=== PATIENT | female | born 1995 | race Caucasian/White ===

== ENCOUNTER 2016-07-16 08:28 | Emergency (ER) | payer BC ==
[2016-07-16 08:43] VITALS: BP 120/81
--- NOTE | 2016-07-16 09:45 | UC ---
Daksha Dunn SooYoung, scribed for Janee Guerrier DO on 07/16/16 at 0905 . Throat Pain/Nasal Oliverio HPI - HPI Summary HPI Summary: A 20 y/o F [place] [facility] [place]o sore throat onset two days ago. Associated: mild rhinorrhea, general body aches. Denies; fatigue, fever, ANDREW, CP, SOB, n/v, rashes. Described as sharp when she swallows. Pain makes it difficult to eat and drink. She states feeling healthy otherwise. - History of Current Complaint Chief Complaint: UCRespiratory Stated Complaint: SORE THROAT Time Seen by Provider: 07/16/16 08:35 Hx Obtained From: Patient Hx Last Menstrual Period: 06/12/16 Onset/Duration: Lasting Days, Still Present Severity: Moderate Pain Intensity: 7 Pain Scale Used: 0-10 Numeric Cough: None Associated Signs & Symptoms: Positive: Nasal Discharge - mild. Negative: Fever , Vomiting, Rash - Allergies/Home Medications Allergies/Adverse Reactions: Allergies Allergy/AdvReac Type Severity Reaction Status Date / Time Penicillins Allergy Rash Verified 08/18/15 20:05 Home Medications: Home Medications Ibuprofen [Advil] 07/16/16 [History] Multiple Vitamins W/ Minerals [Airborne] 07/16/16 [History] PMH/Surg Hx/FS Hx/Imm Hx Previously Healthy: Yes Endocrine History Of: Denies: Diabetes Cardiovascular History Of: Denies: Hypertension Respiratory History Of: Reports: Asthma - exercise induced as a child GI/ History Of: Denies: Ulcer - Surgical History Surgical History: Yes Surgery Procedure, Year, and Place: wisdom teeth - Family History Known Family History: Positive: Cardiac Disease, Other - cancer Negative: Hypertension, Diabetes - Social History Occupation: Student Lives: With Family Alcohol Use: Rare Substance Use Type: None Smoking Status (MU): Never Smoked Tobacco Review of Systems Constitutional: Negative Skin: Negative Eyes: Negative ENT: Sore Throat, Nasal Discharge - mild rhinorrhea Respiratory: Negative Cardiovascular: Negative Gastrointestinal: Negative Genitourinary: Negative Motor: Negative Neurovascular: Negative Musculoskeletal: Other: - pos: general body aches Neurological: Negative Psychological: Negative All Other Systems Reviewed And Are Negative: Yes Physical Exam Triage Information Reviewed: Yes Appearance: Well-Appearing, No Pain Distress, Well-Nourished Vital Signs: Initial Vital Signs Temp 98.7 F 07/16/16 08:36 Pulse 92 07/16/16 08:36 Resp 18 07/16/16 08:36 BP 120/81 07/16/16 08:36 Pulse Ox 98 07/16/16 08:36 Vital Signs Reviewed: Yes Eyes: Positive: Conjunctiva Clear. Negative: Discharge ENT: Positive: Hearing grossly normal, TMs normal, Tonsillar swelling, Tonsillar exudate. Negative: Trismus, Muffled/hoarse voice Neck: Positive: Other: - pos: tender lymphadenopathy Respiratory: Positive: Lungs clear, Normal breath sounds, No respiratory distress, No accessory muscle use Cardiovascular: Positive: RRR, No Murmur Musculoskeletal Exam: Normal Neurological: Positive: Alert, Muscle Tone Normal Psychological Exam: Normal Psychological: Positive: Age Appropriate Behavior Skin Exam: Normal, Other - pos: warm, dry, nml color Throat Pain/Nasal Course/Dx - Course Assessment/Plan: Strep test is negative. - Differential Dx/Diagnosis Differential Diagnosis/HQI/PQRI: Mononucleosis, Pharyngitis - strep, Sinusitis, Tonsillitis, URI Provider Diagnoses: sore throat Discharge - Discharge Plan Condition: Stable Disposition: HOME Patient Education Materials: Pharyngitis (ED) Referrals: No Primary Care Phys,NOPCP [Primary Care Provider] - [facility] [Outside] Additional Instructions: As we discussed: Gargle with salt water. DISCUSSED, TRY MAGIC MOUTHWASH TO CONTROL PAIN PRIOR TO EATING. The documentation as recorded by the Daksha fuller SooYoung accurately reflects the service I personally performed and the decisions made by , Janee Guerrier DO.
== END 2016-07-16 09:45 | disposition home or self-care (01) ==
LOC: UCEAST 08:28
DX: J02.9 Acute pharyngitis, unspecified (principal); J45.909 Unspecified asthma, uncomplicated; Z88.0 Allergy status to penicillin
CPT/HCPCS: 87651; 99212; G0463

== ENCOUNTER 2016-08-21 16:26 | Emergency (ER) | payer BC ==
[2016-08-21] MEDS ORDERED: SUMAtriptan SQ* 6 MG/0.5 ML VIAL SUBCUT ONE (19:19)
[2016-08-21 20:23] VITALS: BP 126/79
--- NOTE | 2016-08-22 00:22 | UC ---
marek Dunn Timothy, scribed for gNa Mcclellan MD on 08/21/16 at 1906 . Headache HPI - HPI Summary HPI Summary: Mariella Montero is a 20 yo female presenting to [facility] with sudden onset blurred vision for one hour at 1300 with "fluttery" vision in left field for 1 hour following that, and 7/10 bilateral ANDREW since then. Nurses note states right eye, but Pt has corrected to left eye. She states she was photophobic. She denies any other Sx including fever or any trauma. Pt has no prior hx of migraine, but her mother has hx migraine. She is on hormonal control. Her MHx includes tonsilitis, strep throat, asthma. She is currently having her menses. - History Of Current Complaint Stated Complaint: BLURRED VISION,HEADACHE Time Seen by Provider: 08/21/16 19:12 Hx Obtained From: Patient Hx Last Menstrual Period: 08/17/16 Onset/Duration: Sudden Onset, Lasting Hours, Still Present Onset Of Symptoms: Sudden Initially Headache Was: Initial Pain Scale(0-10)= - 7 Currently Pain Is: Current Pain Scale(0-10)= - 7 Pain Intensity: 7 Pain Scale Used: 0-10 Numeric Timing: Constant Character: Throbbing Location of Headache: Frontal Aggravating Factor: Bright Lights Allevating Factors: Nothing Associated Signs And Symptoms: Positive: Visual Changes - blurred vision followed by "fluttery" visual field. Negative: Fever - Risk Factors SAH Risk Factors: Negative Meningitis Risk Factors: Negative SDH Risk Factors: Negative Temporal Arteritis Risk Factors: Female - Allergies/Home Medications Allergies/Adverse Reactions: Allergies Allergy/AdvReac Type Severity Reaction Status Date / Time Penicillins Allergy Rash Verified 08/21/16 18:53 PMH/Surg Hx/FS Hx/Imm Hx Endocrine History Of: Denies: Diabetes, Thyroid Disease Cardiovascular History Of: Denies: Cardiac Disorders, Hypertension Respiratory History Of: Reports: Asthma - exercise induced as a child Denies: COPD GI/ History Of: Denies: Ulcer - Surgical History Surgical History: Yes Surgery Procedure, Year, and Place: wisdom teeth - Family History Known Family History: Positive: Cardiac Disease, Other - cancer, migraine Negative: Hypertension, Diabetes - Social History Occupation: Student Alcohol Use: Rare Substance Use Type: None Smoking Status (MU): Never Smoked Tobacco Review of Systems Constitutional: Negative Skin: Negative Eyes: Blurred Vision - now resolved, followed by fluttery area in right visual field, Photophobia ENT: Negative Respiratory: Negative Cardiovascular: Negative Gastrointestinal: Negative Genitourinary: Negative Motor: Negative Neurovascular: Negative Musculoskeletal: Negative Neurological: Headache Psychological: Negative All Other Systems Reviewed And Are Negative: Yes Physical Exam Triage Information Reviewed: Yes Appearance: Well-Appearing, Well-Nourished, Pain Distress Vital Signs: Initial Vital Signs Temp 98.1 F 08/21/16 18:49 Pulse 60 08/21/16 18:49 Resp 16 08/21/16 18:49 BP 128/80 08/21/16 18:49 Pulse Ox 100 08/21/16 18:49 Vital Signs Reviewed: Yes Eyes: Positive: Conjunctiva Clear, Other: - PERRL, EOMI. Disks are sharp and flat, no hemorrhage bilaterally.. Negative: Discharge ENT: Positive: Hearing grossly normal, Pharynx normal, TMs normal. Negative: Muffled/hoarse voice Neck: Positive: Supple, Nontender Respiratory: Positive: Lungs clear, Normal breath sounds, No respiratory distress Cardiovascular: Positive: RRR, No Murmur, Pulses Normal, Brisk Capillary Refill Musculoskeletal: Positive: Strength Intact, ROM Intact Neurological: Positive: Alert, Muscle Tone Normal, Other: - A&O x3 CN II-XII intact Motor function 5/5 Sensations intact. Gait WNL. Psychological Exam: Normal Psychological: Positive: Age Appropriate Behavior Skin Exam: Normal Skin: Negative: rashes Re-Evaluation - Re-Evaluation First Eval Re-Evaluation Time: 20:06 Change: Improved Comment: Pt states her ANDREW has improved to a 5/10. She is declining CT imaging, and would like to be discharged. Pt agrees to present to [facility] if her pain increases or with manifestation of new symptoms. Headache Course/Dx - Course Course Of Treatment: Mariella Montero is a 20 yo female rpesenting to [facility] with blurred vision followed by a "fluttery" area in her right visual field, followed by 7/10 ANDREW since 1300. Pt received Sumatriptan in urgent care with decrease in her Sx. After re-evaluation, Pt agrees to present to [facility] if her pain increases or with manifestation of new symptoms, but would like to be discharged home. After clinical examination, she will be discharged home with migraine with appropriate instructions. - Differential Dx/Diagnosis Differential Diagnosis/HQI/PQRI: TIA, Migraine, Sinus Headache, Tension Headache Provider Diagnoses: acute migraine headache Discharge - Discharge Plan Condition: Stable Disposition: HOME Patient Education Materials: Migraine Headache (ED), Acute Headache (ED) Referrals: [facility] [facility] [Outside] - 2 Days [facility] [Provider Group] - 2 Days Additional Instructions: You were given imitrex (sumatriptan) 6mg subcutaneously at 7:45pm with some relief of your symptoms. We discussed CT imaging and decided not to do imaging at this time. Please follow up with the primary care physician provided and Pauline regarding your visit to urgent care today. Return to urgent care or the emergency department with any new or recurring symptoms. The documentation as recorded by the marek fuller Timothy accurately reflects the service I personally performed and the decisions made by , Nga Mcclellan MD.
== END 2016-08-21 20:23 | disposition home or self-care (01) ==
LOC: UCEAST 16:26
DX: G43.909 Migraine, unspecified, not intractable, without status migrainosus (principal); J45.990 Exercise induced bronchospasm
CPT/HCPCS: 99212; G0463; J3030

== ENCOUNTER 2017-05-20 07:49 | Emergency (ER) | payer BC ==
[2017-05-20 10:38] VITALS: BP 122/76
--- NOTE | 2017-05-20 15:32 | UC ---
Bernabe Dunn Tiffany, scribed for Janee Guerrier DO on 05/20/17 at 0902 . General HPI - HPI Summary HPI Summary: The patient is a 21 year old F presenting to [facility] with a chief complaint of sore throat since yesterday. The patient rates the pain 7/10 in severity. Symptoms aggravated by nothing. Symptoms alleviated by nothing. Patient reports bilateral eye irritation, specifically crust on right eye and pain in left eye. She also reports diaphoresis, cough with production, and sinus congestion. The patient additionally reports constant sore throbbing on her right upper teeth. She had two cavities filled six days ago this area. Patient denies fever, chills , vomiting, nasal congestion, and ear ache. - History of Current Complaint Chief Complaint: UCGeneralIllness Stated Complaint: DENTAL COMPLAINT,SORE THROAT,EYE COMPLAINT Time Seen by Provider: 05/20/17 08:47 Hx Obtained From: Patient Hx Last Menstrual Period: 05/20/17 Onset/Duration: Lasting Days - Yesterday, Still Present Current Severity: Moderate Pain Intensity: 7 Aggravating: Nothing Alleviating: Nothing Associated Signs & Symptoms: Positive: Other - bilateral eye irritation, specifically crust on right eye and pain in left eye, diaphoresis, cough with production, and sinus congestion, constant sore throbbing on her right upper teeth; NEGATIVE: fever, chills, vomiting, nasal congestion, and ear ache. - Allergy/Home Medications Allergies/Adverse Reactions: Allergies Allergy/AdvReac Type Severity Reaction Status Date / Time Penicillins Allergy Rash Verified 05/20/17 08:10 PMH/Surg Hx/FS Hx/Imm Hx Previously Healthy: No - Pt states she gets strep 3x a year Other Endocrine History: NEGATIVE: Diabetes, thyroid disease Respiratory History: Asthma Other Respiratory History: NEGATIVE: COPD - Surgical History Surgical History: Yes Surgery Procedure, Year, and Place: wisdom teeth - Family History Known Family History: Positive: Cardiac Disease, Other - cancer, migraine Negative: Hypertension, Diabetes - Social History Alcohol Use: Rare Substance Use Type: None Smoking Status (MU): Never Smoked Tobacco Review of Systems Constitutional: Negative - Fever, chills, Other - Diaphoresis Eyes: Other - Bilateral eye irritation, specifically crust on right eye and pain in left eye ENT: Negative - Ear ache, nasal congestion, Dental Pain - constant sore throbbing on her right upper teeth, Sore Throat, Sinus Congestion Respiratory: Cough - With production Gastrointestinal: Negative - Vomiting All Other Systems Reviewed And Are Negative: Yes Physical Exam Triage Information Reviewed: Yes Vital Signs: Initial Vital Signs Temp 99 F 05/20/17 08:11 Pulse 84 05/20/17 08:11 Resp 16 05/20/17 08:11 BP 118/76 05/20/17 08:11 Pulse Ox 97 05/20/17 08:11 Vital Signs Reviewed: Yes - Additional Comments Appearance: Well-Appearing, No Pain Distress, Well-Nourished Eyes: Conjunctiva mildly inflamed, Scant discharge from bilateral eyes ENT: Hearing grossly normal, no muffled/hoarse voice. TMs normal, tonsillar swelling, tonsillar exudate, negative trismus. Dental: Tender to percussion over teeth #2 and #3 Neck: Normal, Supple Respiratory/Lung Sounds: Lungs clear, Normal breath sounds, No respiratory distress, No accessory muscle use Cardiovascular: RRR, No murmur Musculoskeletal: Normal Neurological: Alert, muscle tone normal Psychiatric: Normal, age appropriate behavior Skin: Normal, Warm, Dry, Normal color Course/Dx - Course Course Of Treatment: Rapid strep test came back negative. Patient will be discharged with prescription for Magic Mouthwas, Polytrim and Deltasone. The patient is agreeable with this plan. Allergies reviewed. High blood pressure noted. - Differential Dx - Multi-Symptom Provider Diagnoses: Pharyngitis, toothache, conjunctivitis, elevated blood pressure without diagnosis of hypertension Discharge - Discharge Plan Condition: Stable Disposition: HOME Prescriptions: Magic Mouth Was-DAVID/MAAL/LIDO* 5 ml SWISH SPIT QID PRN #100 ml PRN Reason: Pain Polymyx/Trimethoprim OPTH* [Polytrim OPHTH*] 1 drop BOTH EYES Q3H #1 btl predniSONE TAB* [Deltasone TAB*] 40 mg PO DAILY #10 tab Patient Education Materials: Pharyngitis (ED), Toothache (ED), Conjunctivitis ( ED) Referrals: No Primary Care Phys,NOPCP [Primary Care Provider] - Additional Instructions: FOR TOOTHACHE: PLEASE CALL YOUR DENTIST AND SEE IF THEY AGREE WITH TREATING YOU FOR A DENTAL INFECTION AT THIS TIME. ANTIBIOTIC THERAPY: You have been given an antibiotic prescription. It's important that you take all the medication, unless instructed otherwise by your physician. Failure to complete the entire course can result in relapse of your condition. Common side effects of antibiotics include nausea, intestinal cramping, or diarrhea. Women may develop vaginal yeast infections, and babies can get yeast (thrush) in the mouth following the use of antibiotics. Contact your physician if you develop significant side effects from this medication. Allergy to this antibiotic can result in hives, wheezing, faintness, or itching. If symptoms of allergy occur, stop the medication and call the doctor. ANYTIME YOU TAKE AN ANTIBIOTIC, IT IS IMPORTANT TO REPLENISH THE BODY'S SUPPLY OF "GOOD BACTERIA." YOU CAN GET GOOD BACTERIA FROM HIGH QUALITY CULTURED FOODS SUCH LOCAL YOGURT, SOUR KRAUT, MATTY TIFFANIE, NATURALLY FERMENTED PICKLES AND PROBIOTIC DRINKS. YOU CAN ALSO GET GOOD BACTERIA FROM A PROBIOTIC SUPPLEMENT. FOR YOUR SORE THROAT: DISCUSSED, TRY MAGIC MOUTHWASH TO CONTROL PAIN PRIOR TO EATING. CORTICOSTEROID MEDICATION: You have been given a medicine of the cortisone class. This medication is used to control inflammation or allergy. It is usually only given for a short period of time, until the acute process subsides. There are usually no side effects from short-term use of cortisone-like medications. Some persons feel an increased sense of well-being and are not sleepy at bedtime. Long-term use of cortisone medications is best avoided, unless required for a severe condition. If your condition does not remit, or relapses after the course of corticosteroid medication, you should consult your physician. Contact the physician if you develop lightheadedness, black or tarry stools , swelling of the legs, or significant rapid change in weight. FOR YOUR EYE INFECTION: USE EYE DROPS DIRECTED The documentation as recorded by the Bernabe fuller Tiffany accurately reflects the service I personally performed and the decisions made by , Janee Guerrier DO.
== END 2017-05-20 10:32 | disposition home or self-care (01) ==
LOC: UCEAST 07:49
DX: J02.9 Acute pharyngitis, unspecified (principal); K08.89 Other specified disorders of teeth and supporting structures; R03.0 Elevated blood-pressure reading, without diagnosis of hypertension; H10.9 Unspecified conjunctivitis
CPT/HCPCS: 87651; 99212; G0463

== ENCOUNTER 2017-05-23 12:37 | Emergency (ER) | payer BC ==
[2017-05-23 13:46] VITALS: BP 119/69
[2017-05-23] MEDS ORDERED: Albuterol 2.5 MG/3 ML NEB.SOL* (0.083%) INH ONE (14:17)
--- NOTE | 2017-05-23 14:48 | UC ---
Respiratory Complaint HPI - HPI Summary HPI Summary: Patient presents with an unremarkable past medical history. She presents with complaints of five day onset sore throat, chest congestion and coughing. She states she is one day 5 of clindymycin and comes back in because she still has a sore throat and coughing. She complains of a burning sensation in her chest with coughingShe states she was put on the clindy for toothache, and has been taking it, and the toothache has improved. S. She denies any fever, chills, chest or abdominal pain nausea, vomiting, or diarrhea. - History of Current Complaint Chief Complaint: UCRespiratory Stated Complaint: SORE THROAT,CONGESTED Time Seen by Provider: 05/23/17 14:09 Hx Obtained From: Patient Hx Last Menstrual Period: now Onset/Duration: Gradual Onset, Lasting Days Timing: Constant Severity Initially: Moderate Severity Currently: Moderate Pain Intensity: 5 Character: Cough: Nonproductive Aggravating Factors: Nothing Alleviating Factors: Nothing Associated Signs And Symptoms: Positive: URI - Risk Factors Pulmonary Embolism Risk Factors: Negative Cardiac Risk Factors: Negative Pseudomonas Risk Factors: Negative Tuberculosis Risk Factors: Negative - Allergies/Home Medications Allergies/Adverse Reactions: Allergies Allergy/AdvReac Type Severity Reaction Status Date / Time MS Penicillins [Penicillins] Allergy Rash Verified 05/20/17 08:10 PMH/Surg Hx/FS Hx/Imm Hx Previously Healthy: Yes - Surgical History Surgical History: Yes Surgery Procedure, Year, and Place: wisdom teeth - Family History Known Family History: Positive: Cardiac Disease, Other - cancer, migraine Negative: Hypertension, Diabetes Family History: NON CONTRIBUTORY - Social History Occupation: Student Lives: Alone Alcohol Use: Occasionally Substance Use Type: None Smoking Status (MU): Never Smoked Tobacco Review of Systems Constitutional: Negative Skin: Negative Eyes: Negative ENT: Sore Throat Respiratory: Cough Cardiovascular: Negative Gastrointestinal: Negative Genitourinary: Negative Motor: Negative Neurovascular: Negative Musculoskeletal: Negative Neurological: Negative Psychological: Negative Is Patient Immunocompromised?: No All Other Systems Reviewed And Are Negative: Yes Physical Exam Triage Information Reviewed: Yes Appearance: Well-Appearing Vital Signs: Initial Vital Signs Temp 98.4 F 05/23/17 13:42 Pulse 85 05/23/17 13:42 Resp 16 05/23/17 13:42 BP 119/69 05/23/17 13:42 Pulse Ox 99 05/23/17 13:42 Vital Signs Reviewed: Yes Eye Exam: Normal ENT: Positive: Pharyngeal erythema Neck exam: Normal Neck: Positive: 1 Respiratory Exam: Normal Cardiovascular Exam: Normal Abdominal Exam: Normal Musculoskeletal Exam: Normal Neurological Exam: Normal Psychological Exam: Normal Skin Exam: Normal UC Diagnostic Evaluation - Laboratory O2 Sat by Pulse Oximetry: 99 Respiratory Course/Dx - Course Course Of Treatment: Patient presents with continued complaints of sore throat and buring in her chest with coughing. A chest xray was obtained and was read as negative, and discussed with the patient. A mono spot was drawn and the test results ae pending. A throat culture was also obtained and results are pending. She recieved an albuterol treatment in the department with no noted improvement in her symptoms. Her VSS and she was afebrile. She was discharge with no change in her medical management at this time as her symtpoms may be viral. I did recommend that she rest, increase fluids and follow up with her PCP if her symtpoms persist. She did verbalized understanding of and was in agreement with the discharge plan. - Differential Dx/Diagnosis Differential Diagnosis/HQI/PQRI: Other - pharyngitis Provider Diagnoses: pharyngitis Discharge - Discharge Plan Condition: Stable Disposition: HOME Patient Education Materials: Pharyngitis (ED) Referrals: No Primary Care Phys,NOPCP [Primary Care Provider] - Additional Instructions: Continue current medical management.
--- NOTE | 2017-05-23 14:48 | RAD ---
INDICATION: Cough. COMPARISON: There are no prior studies available for comparison. TECHNIQUE: Dual-energy PA and lateral views of the chest were obtained. FINDINGS: The heart is within normal limits in size. Mediastinal and hilar contours appear within normal limits. The lungs are clear. No pleural effusion is present. IMPRESSION: NO EVIDENCE FOR ACTIVE CARDIOPULMONARY DISEASE.
--- NOTE | 2017-05-24 07:31 | ED ---
Progress - Progress Note Progress Note: Monospot is negative. Course/Dx - Course Course Of Treatment: Patient presents with continued complaints of sore throat and buring in her chest with coughing. A chest xray was obtained and was read as negative, and discussed with the patient. A mono spot was drawn and the test results ae pending. A throat culture was also obtained and results are pending. She recieved an albuterol treatment in the department with no noted improvement in her symptoms. Her VSS and she was afebrile. She was discharge with no change in her medical management at this time as her symtpoms may be viral. I did recommend that she rest, increase fluids and follow up with her PCP if her symtpoms persist. She did verbalized understanding of and was in agreement with the discharge plan.
== END 2017-05-23 15:30 | disposition home or self-care (01) ==
LOC: UCEAST 12:37
DX: J02.9 Acute pharyngitis, unspecified (principal)
CPT/HCPCS: 36415; 71046; 86308; 86664; 86665; 87070; 99212; G0463

== ENCOUNTER 2017-12-18 16:38 | Emergency (ER) | payer BC ==
[2017-12-18 16:45] VITALS: BP 110/60
--- NOTE | 2017-12-18 16:48 | UC ---
Complaint Female HPI - HPI Summary HPI Summary: 22 yo female presents with urinary burning and frequency since yesterday. She tells me that she has never had a UTI, but hears this is what they feel likes. No hx of kidney stone. Denies fever, chills, abdominal pain, n/v/d/c, hematuria , flank pain, or vaginal discharge. - History Of Current Complaint Chief Complaint: UCGU Stated Complaint: URGENT URINATION Time Seen by Provider: 12/18/17 16:48 Hx Obtained From: Patient Hx Last Menstrual Period: 12/10/17 Onset/Duration: Sudden Onset Severity Initially: Mild Severity Currently: Moderate Pain Intensity: 7 Pain Scale Used: 0-10 Numeric - Allergies/Home Medications Allergies/Adverse Reactions: Allergies Allergy/AdvReac Type Severity Reaction Status Date / Time Penicillins Allergy Rash Verified 12/18/17 16:45 Home Medications: Home Medications Norgestimate-Ethinyl Estradiol [Trinessa Tablet] 1 each PO 12/18/17 [History] PMH/Surg Hx/FS Hx/Imm Hx - Additional Past Medical History Additional PMH: None - Surgical History Surgical History: Yes Surgery Procedure, Year, and Place: wisdom teeth - Family History Known Family History: Positive: Cardiac Disease, Other - cancer, migraine Negative: Hypertension, Diabetes - Social History Occupation: Student Lives: Dormitory/Roommates Alcohol Use: Occasionally Substance Use Type: None Smoking Status (MU): Never Smoked Tobacco Review of Systems Constitutional: Negative Skin: Negative Respiratory: Negative Cardiovascular: Negative Gastrointestinal: Negative Genitourinary: Dysuria, Frequency, Urgency Neurovascular: Negative Neurological: Negative Psychological: Negative All Other Systems Reviewed And Are Negative: Yes Physical Exam - Summary Physical Exam Summary: GENERAL: NAD. WDWN. No pain distress. SKIN: No rashes, sores, lesions, or open wounds. NECK: Supple. Nontender. No lymphadenopathy. CHEST: CTAB. No r/r/w. No accessory muscle use. Breathing comfortably and in no distress. CV: RRR. Without m/r/g. Pulses intact. Cap refill <2seconds ABDOMEN: Soft. NTTP. No distention or guarding. No CVA tenderness. Bowel sounds present NEURO: Alert. CN II-XII grossly intact. PSYCH: Age appropriate behavior. Triage Information Reviewed: Yes Vital Signs: Initial Vital Signs Temp 98.5 F 12/18/17 16:42 Pulse 87 12/18/17 16:42 Resp 18 12/18/17 16:42 BP 110/60 12/18/17 16:42 Pulse Ox 97 12/18/17 16:42 Laboratory Tests 12/18/17 17:01 POC Urine Color Yellow POC Urine Clarity Cloudy POC Urine pH 7.0 POC Ur Specif [place] 1.020 POC Urine Protein 2+ A POC Ur Glucose (UA) Negative POC Urine Ketones Negative POC Urine Blood 3+ A POC Urine Nitrite Negative POC Urine Bilirubin Negative POC Urine Urobilinogen 1.0 POC U Leukocyte Esteras 2+ A Vital Signs Reviewed: Yes Complaint Female Dx - Course Course Of Treatment: UA with signs of infection. Will treat with Macrobid and send urine for culture. - Differential Dx/Diagnosis Provider Diagnoses: UTI Discharge - Sign-Out/Discharge Documenting (check all that apply): Patient Departure All imaging exams completed and their final reports reviewed: No Studies - Discharge Plan Condition: Stable Disposition: HOME Prescriptions: Nitrofurantoin Monohyd/M-Cryst [Macrobid 100 mg Capsule] 100 mg PO BID #10 cap Patient Education Materials: Urinary Tract Infection in Women (DC) Referrals: No Primary Care Phys,NOPCP [Primary Care Provider] - Additional Instructions: If you develop a fever, shortness of breath, chest pain, new or worsening symptoms - please call your PCP or go to the ED. - Billing Disposition and Condition Condition: STABLE Disposition: Home - Attestation Statements Provider Attestation: Per institutional requirements, I have reviewed the chart, however, I was not consulted specifically or made aware of this patient by the midlevel provider. I did not personally evaluate, interact with , or disposition this patient.
== END 2017-12-18 17:30 | disposition home or self-care (01) ==
LOC: UCEAST 16:38
DX: N39.0 Urinary tract infection, site not specified (principal); Z88.0 Allergy status to penicillin
CPT/HCPCS: 81003; 87077; 87086; 87186; 99212; G0463

== ENCOUNTER 2018-01-08 17:02 | Emergency (ER) | payer BC ==
[2018-01-08 17:33] VITALS: BP 103/55
--- NOTE | 2018-01-08 17:51 | UC ---
Complaint Female HPI - HPI Summary HPI Summary: burning with urination x 1 day + frequency , urgency, no fever, no chills, no flank pain - History Of Current Complaint Chief Complaint: UCGU Stated Complaint: UTI Time Seen by Provider: 01/08/18 17:48 Hx Obtained From: Patient Hx Last Menstrual Period: 01/07/18 ?: No Onset/Duration: Gradual Onset, Lasting Days - 1, Still Present Timing: Constant Severity Initially: Moderate Severity Currently: Moderate Pain Intensity: 3 Character: Burning Aggravating Factor(s): Urination Alleviating Factor(s): Nothing Associated Signs And Symptoms: Negative: Fever, Back Pain, Vaginal Bleeding/ Discharge, Vaginal Discharge, Nausea, Vomiting(# Of Episodes =), Genital Swelling, Genital Blisters, Retained Foregin Body (Specify) - Allergies/Home Medications Allergies/Adverse Reactions: Allergies Allergy/AdvReac Type Severity Reaction Status Date / Time Penicillins Allergy Rash Verified 01/08/18 17:33 PMH/Surg Hx/FS Hx/Imm Hx Respiratory History: Asthma - Surgical History Surgical History: Yes Surgery Procedure, Year, and Place: wisdom teeth - Family History Known Family History: Positive: Cardiac Disease, Other - cancer, migraine Negative: Hypertension, Diabetes Family History: NON CONTRIBUTORY - Social History Alcohol Use: Occasionally Substance Use Type: None Smoking Status (MU): Never Smoked Tobacco Review of Systems Constitutional: Negative Skin: Negative Eyes: Negative ENT: Negative Respiratory: Negative Gastrointestinal: Negative Genitourinary: Dysuria, Frequency, Urgency Is Patient Immunocompromised?: No All Other Systems Reviewed And Are Negative: Yes Physical Exam Triage Information Reviewed: Yes Appearance: Well-Appearing, No Pain Distress, Well-Nourished Vital Signs: Initial Vital Signs Temp 98.2 F 01/08/18 17:30 Pulse 119 01/08/18 17:30 Resp 18 01/08/18 17:30 BP 103/55 01/08/18 17:30 Pulse Ox 98 01/08/18 17:30 Vital Signs Reviewed: Yes Eye Exam: Normal Eyes: Positive: Conjunctiva Clear ENT: Positive: Normal ENT inspection, Hearing grossly normal, Pharynx normal Neck: Positive: Supple, Nontender, No Lymphadenopathy Respiratory: Positive: Chest non-tender, Lungs clear, Normal breath sounds Cardiovascular: Positive: RRR, No Murmur, Pulses Normal Abdomen Description: Positive: Nontender, Soft. Negative: CVA Tenderness (R), CVA Tenderness (L), Distended, Guarding Bowel Sounds: Positive: Present Skin Exam: Normal Complaint Female Dx - Differential Dx/Diagnosis Provider Diagnoses: UTI Discharge - Sign-Out/Discharge Documenting (check all that apply): Patient Departure All imaging exams completed and their final reports reviewed: No Studies - Discharge Plan Condition: Stable Disposition: HOME Prescriptions: Sulfamethox/Trimethoprim DS* [Bactrim DS 800/160 TAB*] 1 tab PO BID #14 tab Patient Education Materials: Urinary Tract Infection in Women (DC) Referrals: No Primary Care Phys,NOPCP [Primary Care Provider] - 7 Days - Billing Disposition and Condition Condition: STABLE Disposition: Home
== END 2018-01-08 17:57 | disposition home or self-care (01) ==
LOC: UCEAST 17:02
DX: N39.0 Urinary tract infection, site not specified (principal); Z88.0 Allergy status to penicillin
CPT/HCPCS: 81003; 84702; 87077; 87086; 87186; 99212; G0463

== ENCOUNTER 2018-01-21 11:31 | Emergency (ER) | payer BC ==
[2018-01-21 12:21] VITALS: BP 100/51
--- NOTE | 2018-01-21 13:54 | UC ---
Nausea/Vomiting/Diarrhea HPI - HPI Summary HPI Summary: 22 y/o female presents to the urgent care c/o pt states she has had an upset stomach and diarrhea for the past 4 days. pt states she has also been nauseated but has no vomited. pt continues with stomach cramps to bilat lower quads. pt states she has been on bactrim and another abx that she does not remember the name for 2 visits here for uti's. - History of Current Complaint Chief Complaint: UCGI Stated Complaint: DIARRHEA Time Seen by Provider: 01/21/18 13:52 Hx Obtained From: Patient Hx Last Menstrual Period: 01/07/18 ?: No Onset/Duration: Gradual Onset, Lasting Days - 4 days, Still Present Timing: Intermittent Episodes Lasting: - few seconds of diarrhea Severity Initially: Mild Severity Currently: Mild Pain Intensity: 4 - abdominal cramping pain Pain Scale Used: 0-10 Numeric Location: Diffuse - crampoing abdominal which is relief by diarrhea, Epigastric Character: Cramping Aggravating Factor(s): Food Alleviating Factor(s): Bowel Movement, NPO Nausea/Vomiting Presence: Nauseated Diarrhea Presence: Yes Diarrhea Frequency: Daily - 4 episodes for day Diarrhea Duration: 2-3 days Diarrhea Characteristics: Watery - Risk Factors Influenza Risk Factors: Negative Surgical Obstruction Risk Factor(s): Negative - Allergies/Home Medications Allergies/Adverse Reactions: Allergies Allergy/AdvReac Type Severity Reaction Status Date / Time Penicillins Allergy Rash Verified 01/21/18 12:21 PMH/Surg Hx/FS Hx/Imm Hx Previously Healthy: Yes Respiratory History: Asthma - Surgical History Surgical History: Yes Surgery Procedure, Year, and Place: wisdom teeth - Family History Known Family History: Positive: Cardiac Disease Negative: Hypertension, Diabetes Family History: cancer, migraine - Social History Occupation: Student Lives: With Family Alcohol Use: Occasionally Substance Use Type: None Smoking Status (MU): Never Smoked Tobacco - Immunization History Vaccination Up to Date: Yes Review of Systems Constitutional: Negative Skin: Negative Eyes: Negative ENT: Negative Respiratory: Negative Cardiovascular: Negative Gastrointestinal: Abdominal Pain - epigastric, Diarrhea - 4 episodes every day, Nausea Genitourinary: Negative Motor: Negative Neurovascular: Negative Musculoskeletal: Negative Neurological: Negative Psychological: Negative Is Patient Immunocompromised?: No All Other Systems Reviewed And Are Negative: Yes Physical Exam - Summary Physical Exam Summary: Vital Signs Reviewed: Yes General:Patient is a well developed and nourished female who is sitting comfortable in the examining table. Patient is not in any acute respiratory distress. Eyes: Positive: Conjunctiva Clear - PERRLA, EOMI, fundi grossly normal ENT: Positive: Normal ENT inspection, Hearing grossly normal, Pharynx normal, TMs normal Neck: Positive: Supple, Nontender, No Lymphadenopathy Respiratory: Positive: Chest non-tender, Lungs clear, Normal breath sounds, No respiratory distress Cardiovascular: Positive: RRR,S1 and S2 present, No Murmur, Pulses Normal, Brisk Capillary Refill Abdomen Description: Positive: Abd: Flat with no distention. No surface trauma , scars, incisions. hyperactive bowel sounds present in all four quadrants. No tenderness, guarding, rigidity to palpation. No masses palpated, no pulsation in epigastric area mild tenderness on deep palpation. No organomegaly. Negative Thrall signs. No periumbilical tenderness. No rebound in the lower quadrants. NT over McBurneys point. Good femoral pulses bilaterally. No hernia noted. No CVAT bilaterally Musculoskeletal: Positive: Strength Intact, ROM Intact, No Edema,FROM in all major joints, no edema, no cyanosis or clubbing. Neuro: Alert and oriented x 3. No acute neurological deficits. Speech is normal. Psychological: WNL Skin: Dry and warm Triage Information Reviewed: Yes Vital Signs: Initial Vital Signs Temp 98.2 F 01/21/18 12:17 Pulse 84 01/21/18 12:17 Resp 18 01/21/18 12:17 BP 100/51 01/21/18 12:17 Pulse Ox 99 01/21/18 12:17 Naus/Vom/Diarrhea Course/Dx - Differential Dx/Diagnosis Differential Diagnoses - Female: Appendicitis, , Ovarian Cyst, Urinary Tract Infection, Gastroenteritis (Viral), Gastroenteritis (Bacterial), Vomiting , Diarrhea, Colitis, Ovarian Cyst, Peptic Ulcer Disease, Gastritis Provider Diagnoses: 1- Acute diarrhea. 2- Nausea Condition At Discharge: Stable Discharge - Sign-Out/Discharge Documenting (check all that apply): Patient Departure - D/C home All imaging exams completed and their final reports reviewed: No Studies - Discharge Plan Condition: Stable Disposition: HOME Prescriptions: Omeprazole CAP* [Prilosec CAP* 20 MG] 20 mg PO DAILY #30 cap. Ondansetron ODT TAB* [Zofran 4 MG Odt TAB*] 4 mg PO Q6H PRN #12 tab.odt PRN Reason: nausea and vomiting Patient Education Materials: Gastroenteritis (ED) Forms: *School Release Referrals: [facility] [place] [facility] [Outside] - 3 Days Additional Instructions: 1- Please increase fluid intake w/ adult Pedialyte OTC or gatorade. Eat small portions of food, rest, avoid strenuous exercise 2-Continue taking Imodium PO to alleviate diarrhea. 3- Take Zofran PO as directed to alleviate Nausea or vomiting. 4- Please Take Omprazole PO as directed to alleviate symptoms 5- Please bring back to the clinic the stool sample to sent to lab to r/o any abnormality. 6- If you develop severe abdominal pain w/ recurrent episodes of diarrhea please go immediately to the ER, otherwise f/u with your PCP or return to the Urgent care if diarrhea not resolving in 2-3 days - Billing Disposition and Condition Condition: STABLE Disposition: Home
[2018-01-21] MEDS ORDERED: Famotidine TAB* 20 MG PO ONE (14:09)
[2018-01-21] MEDS ORDERED: Ondansetron ODT TAB* 4 MG PO ONE (14:09)
== END 2018-01-21 14:45 | disposition home or self-care (01) ==
LOC: UCEAST 11:31
DX: R19.7 Diarrhea, unspecified (principal); R11.0 Nausea; Z88.0 Allergy status to penicillin
CPT/HCPCS: 82272; 83630; 87045; 87046; 87328; 87329; 87899; 99212; A9270-GY; G0463

== ENCOUNTER 2018-03-18 10:43 | Emergency (ER) | payer BC ==
[2018-03-18 10:55] VITALS: BP 106/65
--- NOTE | 2018-03-18 11:25 | UC ---
Complaint Female HPI - HPI Summary HPI Summary: 22-year-old woman comes in to clinic today with a chief complaint of burning with urination for 1 day. She's had 2 urinary tract infections and the last couple of months and the symptoms to the same. No fevers or chills feels like she has to go frequently and it faria when she urinates. Some suprapubic discomfort but no flank pain or fevers. It is worse with urination. Patient denies any abnormal vaginal discharge and denies any concern of STI. - History Of Current Complaint Chief Complaint: UCGU Stated Complaint: URGENCY, PAIN WITH URINATION Time Seen by Provider: 03/18/18 10:57 Hx Last Menstrual Period: 03/04/18 Pain Intensity: 6 - Allergies/Home Medications Allergies/Adverse Reactions: Allergies Allergy/AdvReac Type Severity Reaction Status Date / Time Penicillins Allergy Rash Verified 03/18/18 10:55 PMH/Surg Hx/FS Hx/Imm Hx Previously Healthy: Yes - Surgical History Surgical History: Yes Surgery Procedure, Year, and Place: wisdom teeth - Family History Known Family History: Positive: Cardiac Disease, Other - cancer, migraine Negative: Hypertension, Diabetes Family History: cancer, migraine - Social History Alcohol Use: Occasionally Substance Use Type: None Smoking Status (MU): Never Smoked Tobacco - Immunization History Vaccination Up to Date: Yes Review of Systems All Other Systems Reviewed And Are Negative: Yes Constitutional: Positive: Negative Skin: Positive: Negative Eyes: Positive: Negative ENT: Positive: Negative Respiratory: Positive: Negative Cardiovascular: Positive: Negative Gastrointestinal: Positive: Negative Genitourinary: Positive: Dysuria, Frequency, Urgency. Negative: Vaginal/Penile Discharge Motor: Positive: Negative Neurovascular: Positive: Negative Musculoskeletal: Positive: Negative Neurological: Positive: Negative Psychological: Positive: Negative Is Patient Immunocompromised?: No Physical Exam Triage Information Reviewed: Yes Appearance: Well-Appearing, No Pain Distress, Well-Nourished Vital Signs: Initial Vital Signs Temp 97.9 F 03/18/18 10:51 Pulse 94 03/18/18 10:51 Resp 17 03/18/18 10:51 BP 106/65 03/18/18 10:51 Pulse Ox 99 03/18/18 10:51 Vital Signs Reviewed: Yes Eye Exam: Normal Eyes: Positive: Conjunctiva Clear Neck exam: Normal Neck: Positive: Supple Respiratory: Positive: Lungs clear, Normal breath sounds, No respiratory distress Cardiovascular: Positive: RRR Abdomen Description: Positive: Nontender, Soft. Negative: CVA Tenderness (R), CVA Tenderness (L) Musculoskeletal Exam: Normal Musculoskeletal: Positive: Strength Intact, ROM Intact Neurological Exam: Normal Neurological: Positive: Alert, Muscle Tone Normal Psychological Exam: Normal Psychological: Positive: Normal Response To Family, Age Appropriate Behavior Skin Exam: Normal Complaint Female Dx - Course Course Of Treatment: This is the patient's third urinary tract infections since November 2017. Both prior infections one in November and one in December were Escherichia coli. First was treated with Macrobid successfully the second was treated with Bactrim successfully. When we discussed the possibility of cause of recurrent urinary tract infections the patient is sexually active. Also prior in the past she was on Bactrim for acne which she is no longer on. The plan will be to follow-up with her primary care doctor to discuss further treatment for recurrent urinary tract infections. - Differential Dx/Diagnosis Provider Diagnosis: UTI (urinary tract infection) Discharge - Sign-Out/Discharge Documenting (check all that apply): Patient Departure All imaging exams completed and their final reports reviewed: No Studies - Discharge Plan Condition: Stable Disposition: HOME Prescriptions: Sulfamethox/Trimethoprim DS* [Bactrim DS 800/160 TAB*] 1 tab PO BID #14 tab Patient Education Materials: Urinary Tract Infection in Women (ED) Referrals: [facility] [Provider Group] Additional Instructions: FOLLOW UP WITH YOUR DOCTOR. GET RECHECKED FOR ANY WORSENING OF YOUR CONDITION; PAIN, FEVER, YOU FEEL ILL OR QUESTIONS OR CONCERNS. - Billing Disposition and Condition Condition: STABLE Disposition: Home
== END 2018-03-18 11:25 | disposition home or self-care (01) ==
LOC: UCEAST 10:43
DX: N39.0 Urinary tract infection, site not specified (principal); B96.89 Other specified bacterial agents as the cause of diseases classified elsewhere; Z88.0 Allergy status to penicillin
CPT/HCPCS: 81003; 84702; 87077; 87086; 87186; 99212; G0463